=== PATIENT | male | born 1950 | race Caucasian/White ===

== ENCOUNTER 2016-11-05 11:21 | Inpatient (IN) ==
--- NOTE | 2016-11-04 22:47 | History and Physical Update ---
Sedation H&P Update - History and Physical H&P was reviewed, the patient examined and there: are no changes in the patients condition since last H&P was completed. - Dictation Physical: refer to H&P completed by admitting physician - Physical Exam Mental Status: alert and oriented Heart: regular rate and rhythm Lung: clear to auscultation Abdomen: within normal limits Vitals: within normal limits - Sedation Plan for Sedation: minimal Patient Consent: Procedure disscussed with patient and patinet has consented., Risks and benefits were discussed with patient,including infection,, bleeding, injury to surrounding structures, seizure, temporary nerve, Patient understands and accepts potential risks/benefits and agrees to, proceed. ASA Class: II Airway Assessment: Class II: Soft palate, uvula, fauces visible
--- NOTE | 2016-11-04 22:50 | Cardiology History & Physical ---
Assessment and Plan - Time spent with patient Time spent with patient: Greater than 30 minutes (1) Dyspnea on exertion Status: Acute Assessment and plan: The exercise EKG and symptoms that with exertion would suggest his symptoms are or anginal equivalent, due to CAD. Plan/recommendation: Admit to the Putty Worker. Left heart cath and possible PTCA or stent. Chest x-rays pending. Labs have been checked. They are acceptable. Left heart cath and possible PTCA or stent were discussed with the patient. The risk of the procedure include but are not limited to a small risk of injury to the vessel, abnormal heart rhythm, stroke, heart attack, need for emergent surgery, contrast reaction, restenosis, or . The patient voices understanding, agrees with the plan, and desires to proceed with the heart catheterization. (2) Abnormal ECG during exercise stress test Status: Acute (3) Inguinal hernia Status: Acute (4) Hypertension Status: Acute (5) Hypercholesterolemia Status: Acute History of Present Illness Chief complaint: " i am sob with exerttion" History of present illness: Mr. Wyman is a 66 year old male The patient is a 66-year-old man. He has had progressive dyspnea on exertion over the last 6 months. He underwent stress testing with Cardiolite. His stress test showed 1/2-2 mm flat to downsloping ST depression. He had dyspnea on exertion. He is being considered for hernia repair. Because of abnormal stress test he is referred for diagnostic catheterization and possible intervention. No orthopnea, PND, edema, palpitations, syncope, cough, wheezing, or phlegm. No bleeding in the pt's bowels, urine, or coughing up blood. No planned surgery for the next year. No contraindication to anticoagulation for a year. Home Medications Medication Instructions Recorded Confirmed Type Valsartan [Diovan] 160 mg PO DAILY 10/23/16 10/23/16 History Allergies Allergy/AdvReac Type Severity Reaction Status Date / Time Unable to Obtain Allergy Verified 10/26/16 13:10 12 point system: reviewed and no additional remarkable complaints except as stated (A 12 point review of systems is negative except for as mentioned in HPI) Medical,Surgical,& Family Hx - Medical History Cardio: History of: Hypertension (medication) Neurology: No history of: Seizures Respiratory: Comment Only: Respiratory Problems (had flu shot and up to date on pnumonia shot) Musculoskeletal: History of: Herniated Disk (back surgery) Hematology: History of: Blood Transfusion Reaction (4 years ago) - Surgical History HEENT Surgeries: Surgical HX of: Tonsilectomy & Adenoidectomy (12 years old) Abdominal Surgeries: Surgical HX of: Appendectomy (1970) Orthopedic Surgeries: Surgical HX of;: Total Knee Replacement (right knee surgery 1969) - Social History Smoking Status: Never smoker Type of Drug Use: None Functional capacity: independent ambulation Cardiology Physical Exam - Constitutional Exam: HEENT: Pupils equal, reactive to light and accommodation Neck: NoJVD or bruit Lungs clear to auscultation Heart: Regular rhythm rate with normal S1 and S2. Apical S4, 1/6 systolic ejection murmur along left lower sternal border Abdomen: No hepatosplenomegaly Spine/extremities: No clubbing, cyanosis, or edema Neuro: Nonfocal Psych: No depression or anxiety Right and left groins had 4+ pulses. Foot pulses were 3-4+. Result/EKG - Labs Lab Results: I have reviewed the past 24 hour labs Labs: CBC and chemistry from [facility] are unremarkable. Okay for the heart cath. A chest x-ray, PA and lateral is being done on admission. It is pending.
[~2016-11-05 11:21] MED LIST: ASPIRIN 325 MG TABLET PO ONE; DIAZEPAM 5 MG TABLET PO ONE; MAGNESIUM SULF RIDER 2 GM in PREMIX 1 EACH IV PRN; POTASSIUM CHLORIDE RIDER 10 MEQ in PREMIX 1 EACH IV PRN; diphenhydrAMINE CAP 25 MG CAPSULE PO ONE
--- NOTE | 2016-11-05 11:58 | XRay Report ---
XR chest 2V Indication: Chest pain. Chest 2 views: ACDF noted. The heart size and mediastinal contour are normal. The lungs and pleural spaces are clear. Bones are unremarkable. Impression: Negative chest. PROCEDURE INTERPRETED AT [facility] DEPARTMENT OF RADIOLOGY Final Report Signed by: Chidi Sykes M.D.
[2016-11-05] MEDS ORDERED: diphenhydrAMINE CAP 25 MG CAPSULE ONE (12:50)
[2016-11-05] MEDS ORDERED: DIAZEPAM 5 MG TABLET ONE (12:50)
[2016-11-05] MEDS: SODIUM CHLORIDE 0.9% 1,000 ML IV SCH ×3 (12:52→22:03)
[2016-11-05] MEDS ORDERED: LIDOCAINE 1% 20 ML VIAL ONE ×2 (13:13→17:44)
[2016-11-05] MEDS ORDERED: MEPERIDINE 25 MG/1 ML VIAL ONE ×3 (13:14→17:43)
[2016-11-05] MEDS ORDERED: MIDAZOLAM 2 MG/2 ML VIAL ONE ×2 (13:14→17:43)
--- NOTE | 2016-11-05 13:37 | EKG Report ---
Stationary ECG Study [facility] Test Date: 11/05/2016 11:59:37 AM Pat Name: SOHAM MCKEON Department: Room: C007 Gender: M Bill Collector: : 1950 Requested by: Jens Jacob Order Number: [id number] Reading MD: ABIGAIL SPIVEY Intervals [place] Rate: 75 P: 67 OK: 163 QRS: 72 QRSD: 101 T: 34 QT: 381 QTc: 409 Interpretive Statements SINUS RHYTHM Electronically Signed On 11-05-16 13:43:09 CDT by ABIGAIL SPIVEY [email or web address]
[2016-11-05] MEDS ORDERED: HEPARIN 5,000 UNIT/1 ML VIAL ONE ×2 (14:03→17:03)
[2016-11-05] MEDS ORDERED: NITROGLYCERIN DRIP 50 MG/250 ML BOTTLE IV ONE ×3 (14:11→18:12)
[2016-11-05] MEDS ORDERED: TICAGRELOR 90 MG TABLET ONE (14:27)
--- NOTE | 2016-11-05 15:44 | Operative Note ---
Date of procedure: 11/05/16 Procedure Preformed: Left heart cath Coronary angiography Left ventriculography Angiogram of the right femoral artery Intracoronary nitroglycerin Loading with Brilinta, 180 mg p.o. Stent of the proximal right coronary artery---drug-eluting stent, 3.0 x 15 mm Zions Alpine Angioplasty of the mid diagonal-successful--2.0 x 20 mm NC trek Angio-Seal of the right femoral artery-successful Surgeon / Physician: Jens Jacob Manager Camp: Lopez Harrell Post-op diagnosis: same (Progressive dyspnea on exertion, stress test suggestive of ischemia, hypertension) Findings: Impression: Significant disease in the proximal right coronary and in the mid diagonal-70% and 90%, respectively Mild disease in other vessels Normal global/regional left ventricular systolic function LVEF greater than 55% Normal to low LVEDP, 0--2 mmHg Intracoronary nitroglycerin of the right coronary--significant disease in the proximal right coronary artery, even after giving the intracoronary nitroglycerin Loading with Brilinta, 180 mg p.o. Status post successful stenting of the proximal right rtccxryj-eyiw-hxspjhk stent, 3.0 x 15 mm Zions Alpine Status post successful angioplasty of the mid diagonal-2.0 x 20 mm NC trek Angio-Seal of the right coronary-successful Plan/recommendations: The patient will have risk factors optimized. The patient will be on antiplatelet medications to include aspirin indefinitely and Plavix or Brilinta for at least a year. I will check his lipids. I will treat per guidelines. Even if his LDL is normal I will place him on a low-dose of a statin. We will delay his inguinal hernia surgery until he is at least 6 months out from his intervention, when can we could possibly interrupt the Brilinta treatment. Ideally will wait a year. Follow-up will be scheduled. Addenda: I saw the patient post-cath. the groin puncture site and distal pulse are stable. vital signs are stable and the patient will be observed closely overnight. Specimens: none sent Estimated blood loss: minimal Condition: stable Anesthesia: local, conscious sedation Disposition: floor
--- NOTE | 2016-11-05 15:51 | Cardiology Operative Report ---
Date of Procedure:: 11/05/16 Post-op diagnosis: same (Progressive dyspnea on exertion, stress test suggestive of ischemia, hypertension) Procedure: Date of procedure: 11/05/16 Procedure Preformed: Left heart cath Coronary angiography Left ventriculography Angiogram of the right femoral artery Intracoronary nitroglycerin--of rca Loading with Brilinta, 180 mg p.o. Stent of the proximal right coronary artery---drug-eluting stent, 3.0 x 15 mm Zions Alpine Angioplasty of the mid diagonal-successful--2.0 x 20 mm NC trek Angio-Seal of the right femoral artery-successful Surgeon / Physician: Jens Jacob Human Services Professional: Lopez Harrell Post-op diagnosis: same (Progressive dyspnea on exertion, stress test suggestive of ischemia, hypertension) procedure: The patient was prepped and draped in usual manner. Entered the right femoral artery via the Seldinger technique. I used a sheath and then used a JL4 and engaged left coronary. Multiple views were taken. I then exchanged for a JR4. Multiple views of the right coronary were taken. I then exchanged for an angled pigtail. I crossed the valve. Left ventricular end-diastolic pressures measured. Left ventriculography was done. Left ventricle pullback was done. The catheters were then removed from the patient. Please see the data sheets for the details of catheters used. Intracoronary nitroglycerin was given, 500 g. There is slightly less narrowing of the right coronary artery after was given. However, after the intervention of the diagonal, the narrowing had returned in the right coronary artery and was significant, at least 70%. Intervention: Cardiovascular surgery was available for any complications. Intervention of the diagonal: The coronary intervention was done using a JL4 guiding catheter, 0.014 run through wire, A 2.0 x 20 mm NC trek. I placed the wire and balloon across the diagonal. It was ballooned. See the data sheet. Afterwards there was a good result, less than 20% residual, continued TIFFANY grade III flow. Intervention of the right coronary: Intervention was done with a JR4 guiding cath, 0.01 run through wire, and direct stenting with a 3.0 x 15 mm Zions Alpine After no predilatation, i placed the Zions Alpine coronary stent across the lesion. It was deployed. Afterwards, there was a 0% residual and TIFFANY grade III flow. Angiogram of the right femoral artery was done, as a follow-through from the left ventriculogram. Angio-Seal was done. Patient was transferred to their room on telemetry in satisfactory condition. Please see the cath report for details of the pressures and times. Complications: none Hemodynamic data: LVEDP was 0 to -2 mmHg. Angiographic data: The left main coronary was large and had minimal luminal irregularities. The left anterior descending artery was large. There are 2 major diagonals. The parent LAD had minimal luminal irregularities. The first diagonal had minimal irregularities. The second diagonal had a mid 90% narrowing. It was relatively focal. The left circumflex system was moderate to large. It was 1 major obtuse marginal and 1 posterior lateral branches. there are minimal luminal irregularities in the circumflex The right coronary artery was large in size, dominant vessel with the PDA. There was a moderate sized post lateral branch. The proximal right coronary had a 70% narrowing. After intracoronary nitroglycerin, initially it appeared last. However, after intervention of the diagonal, when I re-looked, there is at least a 70% narrowing. It was significant. Otherwise there were minimal luminal irregularities of the right coronary artery. HOLMAN left ventriculography revealed normal global/regional left ventricular systolic function. Overall ejection fraction was at least 55%. There is no significant mitral regurgitation. After intervention of the of the diagonal, there is less than 20% residual. There is TIFFANY grade III flow. Also, the distal vessel was larger, significantly so. After intervention of the proximal right right coronary with a stent there is a 0% residual. There is TIFFANY grade III flow. Findings: Impression: Significant disease in the proximal right coronary and in the mid diagonal---70 % and 90%, respectively Mild disease in other vessels Normal global/regional left ventricular systolic function LVEF greater than 55% Normal to low LVEDP, 0--2 mmHg Intracoronary nitroglycerin of the right coronary--significant disease in the proximal right coronary artery, even after giving the intracoronary nitroglycerin Loading with Brilinta, 180 mg p.o. Status post successful stenting of the proximal right fqgsoqhs-fpqk-ljzxiry stent, 3.0 x 15 mm Geena Da Silva Status post successful angioplasty of the mid diagonal-2.0 x 20 mm GERRY linda Angio-Seal of the right coronary-successful Plan/recommendations: The patient will have risk factors optimized. The patient will be on antiplatelet medications to include aspirin indefinitely and Plavix or Brilinta for at least a year. I will check his lipids. I will treat per guidelines. Even if his LDL is normal I will place him on a low-dose of a statin. We will delay his inguinal hernia surgery until he is at least 6 months out from his intervention, when can we could possibly interrupt the Brilinta treatment. Ideally will wait a year. Follow-up will be scheduled. Addenda: I saw the patient post-cath. the groin puncture site and distal pulse are stable. vital signs are stable and the patient will be observed closely overnight. Specimens: none sent Estimated blood loss: minimal Condition: stable Anesthesia: local, conscious sedation Disposition: floor Additional CC's: Jens Khan Anesthesia: local, minimal conscious sedation Surgeon / Physician: Jens Jacob Human Services Professional: other Estimated blood loss: minimal Specimens: none sent Condition: stable Disposition: floor
[2016-11-05 17:05] LABS: Risk Ratio 2.58
[2016-11-05] MEDS ORDERED: TIROFIBAN 0 MCG in PREMIX 1 EACH IV ONE (17:10)
[2016-11-05] MEDS ORDERED: TIROFIBAN IV ONE (17:14)
[2016-11-05] MEDS ORDERED: SODIUM CHLORIDE 0.9% 250 ML IV ONE (17:20)
[2016-11-05] MEDS ORDERED: NITROGLYCERIN SL 0.4 MG TABLET SL ONE (17:24)
[2016-11-05] MEDS ORDERED: TIROFIBAN 5,000 MCG/100 ML PREMIX IV SCH (17:30)
[2016-11-05] MEDS: TIROFIBAN 5,000 MCG/100 ML PREMIX IV SCH (17:32)
[2016-11-05 17:38] LABS: Troponin I Only 0.029 NG/ML (0.00-0.045)
--- NOTE | 2016-11-05 19:38 | Operative Note ---
Date of procedure: 11/05/16 Procedure Preformed: Right coronary angiogram Stent of right coronary artery---3 drug-eluting stents, distal is a 2.5 x 38 mm Synergy, mid is a 2.5 x 38 mm Zions Alpine, the most proximal and telescoping into the proximal stent that was done a few hours ago is a 3.0 x 23 mm Zions Alpine--for long dissection of the right coronary after the original stent done a few hours ago Aggrastat bolus and infusion-starting CCU Suturing end of the left femoral arteries sheath Surgeon / Physician: Jens Jacob Knife Machine Operator: Radha De La Torre Post-op diagnosis: same (Placement of a right coronary stent and PTCA of the diagonal done a few years ago-the patient suddenly had chest pain, bradycardia and inferior ST elevation-brought back to the [place] [facility] for presumed problem in the right coronary artery) Findings: Impression: 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 There was 100% occluded in the midportion of the vessel-presumably it was guidewire trauma from the original intervention-was not seen at the time of the intervention Attempted ballooning and nitroglycerin of the right coronary with no benefit- presumed due to dissection Status post successful extensive stenting of the right coronary[full metal jacket] from the PDA back up to the distal portion of the original stent- covering all of the dissection--3 drug-eluting stents-3 drug-eluting stents, distal is a 2.5 x 38 mm Synergy, mid is a 2.5 x 38 mm Zions Alpine, the most proximal and telescoping into the proximal stent that was done a few hours ago is a 3.0 x 23 mm Zions Alpine--for 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 The patient will be on antiplatelet medications to include aspirin indefinitely and Plavix or Brilinta for at least a year. I will add a low-dose of carvedilol. Will be a beta-anna post MA. Eventually will use his ARB. I believe the acute occlusion of the right coronary was related to 2 dissections, just after the stent in the midportion of the right coronary. I have covered both dissections with 3 stents. He now is TIFFANY grade III flow, no ST elevation, no chest pain. Hopefully will last. There is some staining in the adventitia, particular in the midportion of the vessel, but no suggestion of perforation. His blood pressure is adequate and he is not having pericardial pain. He will be watched very closely. I will discuss with Dr. Iyer. I would favor not continuing anticoagulant in the patient overnight, but we can decide together. He will have his Aggrastat stopped when he is out. I do not believe this is a platelet dysfunction but related to a dissection. He has been given Brilinta. He will be continued on Brilinta. He probably has had at least a small-to- moderate MA with the event. Hopefully it will heal. If he closes off his vessel disease will be made as to whether to try to reopen it and sending to surgery or just let him have a heart attack. I would favor the latter because of the extensive covering of the stent and not much areas of the bypass could be sewn into[[it would be toward the mid to distal portion of the PDA]. Prognosis is guarded. Discussion was had with the patient and his regarding the situation. They voiced understanding and are aware. My post-cath check Addenda: I saw the patient post-cath. the groin puncture site and distal pulse are stable. vital signs are stable and the patient will be observed closely overnight. Specimens: none sent Estimated blood loss: minimal Condition: other (guarded) Anesthesia: local, conscious sedation Disposition: ICU
--- NOTE | 2016-11-05 19:54 | Cardiology Operative Report ---
Date of Procedure:: 11/05/16 Post-op diagnosis: same (Placement of a right coronary stent and PTCA of the diagonal done a few years ago-the patient suddenly had chest pain, bradycardia and inferior ST elevation-brought back to the Regular Senior Care Provider for presumed problem in the right coronary artery) Procedure: Date of procedure: 11/05/16 Procedure Preformed: Right coronary angiogram Stent of right coronary artery---3 drug-eluting stents, distal is a 2.5 x 38 mm Synergy, mid is a 2.5 x 38 mm Zions Alpine, the most proximal and telescoping into the proximal stent that was done a few hours ago is a 3.0 x 23 mm Zions Alpine--for 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 I did an an angiogram of the right coronary. I used a JR4 guide, 6 English. It revealed the stent to be widely patent, there is no clot, but just after the stent that was resection and it did appear to be fairly long within the midportion of the vessel was totally occluded, or it could have been a second dissection, possibly related to guidewire trauma with the original stent. There was some staining there, suggesting it might also be a dissection. I then used a run through wire to go through the old stent, a few hours old, down to the occlusion. With gentle manipulation he did cross what I presume was a dissection plane. I then placed it in the PDA. At the end placed a 2.0 20 mm apex across the mid to distal occlusion. It was ballooned. It helps somewhat but I could see there was an extension dissection. I then removed the balloon. Intravenous nitroglycerin had not helped. I then attempted to place a 2.5 x 38 mm Synergy across that long dissection distally into the PDA. I wanted to get in the PDA because the dissection appeared to be fairly long but did not initially appear in the PDA. It appears the PDA was not dissected so wanted to get to that point. I was willing to intermediate the post lateral as it did not supply much myocardium. I then placed a stent in the midportion but it would not go Into the PDA because of resistance. It backed up my guide. I then removed the stent. At this portion and during this time is across the wire the vessel was open, patient became better. I then used a guide liner to go through the original stent as far into the mid vessel was occluded. I placed it over the 2.0 balloon. After it was a far as I could go then I removed the balloon and then it re-attempt to place a stent distally. It did go. I was then able to place the Synergy into the PDA and back as far as can go. It was deployed. There was ongoing dissection even proximal up to the proximal stent. There is some staining of the adventitia but there is no suggestion of perforation. I then placed a 2.5 x 38 mm Zions Alpine telescoping into the distal stent as far up proximally as it could. It was deployed. It was fairly good. Then one could see the dissection between the original stent and the second long Alpine stent. I then placed a 3.0 x 23 mm Zions Alpine across this section. It was overlapping into the midportion of the original stent and into the second stent. It was deployed. At that point there is TIFFANY grade III flow, his pain was gone, his ST elevation was was gone. We watched it for 20 or 30 minutes. It is not changing. Over time, the jailing of the post lateral seem to be less. They might insert originally some spasm but it was gone. There is good flow. I removed the balloon and the wire. See please see the data sheet for the balloon inflation times and atmospheres. I then did my final diagnostic angiography. Again there is no suggestion of perforation. His blood pressure was adequate at 120/70. His ST elevation was gone. I felt he had had adequate antiplatelet therapy with the Aggrastat and the earlier Brilinta 180 so I did not give him extra. i Assess this was a dissection problem. I then removed the balloon and the wire did final angiograms. There was a good result. I do know that it is tenuous, however. It was elected to leave the left femoral artery sheath in place overnight. he remains stable without chest pain ST elevation for probably 40 total minutes as I was doing orders and my note. He was admitted to CCU and guarded condition. I had a long discussion with the patient and the as far as what would happen next if he did reocclude it --the decision to either allow the heart attack to happen and treat him through it with possible complications problems versus attempting to reopen it and send him to surgery with the risk of operation a single vessel disease with much anticoagulation on an antiplatelet medicines on board. I would favor the former option, trying to treat him to a heart attack. Complications: None-he came down with an occluded vessel Hemodynamic data: Systolic pressure was 100-120 during the entire procedure. I did not enter the left ventricle to get an LVEDP Angiographic data Prior to the intervention, the original angiogram was in the dissection just after the stent but also mid vessel occlusion which had the appearance of a dissection more than thrombus. After initially opening the vessel it appeared that the midportion was a dissection. After placement of the 3 new stents, telescoping, there was a 0% residual and TIFFANY grade III flow. There is also good flow to the posterior lateral branch of the right coronary. There was an adventitial staining of the midportion of the right coronary artery and I do not see any suggestion of perforation into the pericardium. 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 There was 100% occluded in the midportion of the vessel-presumably it was guidewire trauma from the original intervention-was not seen at the time of the intervention Attempted ballooning and nitroglycerin of the right coronary with no benefit- presumed due to dissection Status post successful extensive stenting of the right coronary[full metal jacket] from the PDA back up to the distal portion of the original stent- covering all of the dissection--3 drug-eluting stents-3 drug-eluting stents, distal is a 2.5 x 38 mm Synergy, mid is a 2.5 x 38 mm Zions Alpine, the most proximal and telescoping into the proximal stent that was done a few hours ago is a 3.0 x 23 mm Zions Alpine--for 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 The patient will be on antiplatelet medications to include aspirin indefinitely and Plavix or Brilinta for at least a year. I will add a low-dose of carvedilol. Will be a beta-anna post TX. Eventually will use his ARB. I believe the acute occlusion of the right coronary was related to 2 dissections, just after the stent in the midportion of the right coronary. I have covered both dissections with 3 stents. He now is TIFFANY grade III flow, no ST elevation, no chest pain. Hopefully will last. There is some staining in the adventitia, particular in the midportion of the vessel, but no suggestion of perforation. His blood pressure is adequate and he is not having pericardial pain. He will be watched very closely. I will discuss with Dr. Iyer. I would favor not continuing anticoagulant in the patient overnight, but we can decide together. He will have his Aggrastat stopped when he is out. I do not believe this is a platelet dysfunction but related to a dissection. He has been given Brilinta. He will be continued on Brilinta. He probably has had at least a small-to- moderate TX with the event. Hopefully it will heal. If he closes off his vessel disease will be made as to whether to try to reopen it and sending to surgery or just let him have a heart attack. I would favor the latter because of the extensive covering of the stent and not much areas of the bypass could be sewn into[[it would be toward the mid to distal portion of the PDA]. Prognosis is guarded. Discussion was had with the patient and his regarding the situation. They voiced understanding and are aware. My post-cath check Addenda: I saw the patient post-cath. the groin puncture site and distal pulse are stable. vital signs are stable and the patient will be observed closely overnight. Specimens: none sent Estimated blood loss: minimal Condition: other (guarded) Anesthesia: local, conscious sedation Disposition: ICU Additional CC's: Jens Khan Anesthesia: local, minimal conscious sedation Surgeon / Physician: Jens Touchstone Hand Spring Repairer: other Estimated blood loss: minimal Specimens: none sent Condition: other (guarded) Disposition: ICU/CCU
[2016-11-05] MEDS ORDERED: CARVEDILOL 3.125 MG TABLET PO SCH (20:00)
[2016-11-05] MEDS ORDERED: HEPARIN/NACL 0.9% 2 UNITS/ML 500 ML IV ONE (20:08)
[2016-11-05 21:18] LABS: Apearance,Urine CLEAR (Clear); Bilirubin,Urine Negative (Negative); Blood, Urine Large mg/dL (Negative); Glucose,Urine (UA) Negative (Negative); Ketones,Urine 20 mg/dL (Negative); Mucus,Urine Occasional /LPF (Occasional); Nitrite,Urine Negative (Negative); Protein,Urine Negative; RBC,Urine 181 /HPF (0-4); Squamous Epithelial Cell,Urine Occasional /HPF (0-10); Urine Color Straw (Yellow); Urine Specific Gravity > 1.060 (1.001-1.035); Urine Urobilinogen < 2.0 EU/DL (0.2-1.0); WBC,Urine 2 /HPF (0-6)
[2016-11-05] MEDS: TICAGRELOR 90 MG TABLET PO SCH (22:00)
[2016-11-05] MEDS ORDERED: ENOXAPARIN 40 MG/0.4 ML SYRINGE SUBCUT ONE (23:56)
[2016-11-06] MEDS: CARVEDILOL 6.25 MG TABLET PO SCH ×3 (00:03→13:29)
[2016-11-06 00:54] LABS: CKMB % 10.5 %
[2016-11-06 00:58] LABS: Troponin I Only 27.1 NG/ML (0.00-0.045)
[2016-11-06] MEDS: TIROFIBAN 5,000 MCG/100 ML PREMIX IV SCH ×4 (01:01→22:46)
[2016-11-06] MEDS: SODIUM CHLORIDE 0.9% 1,000 ML IV SCH (01:42)
[2016-11-06 05:14] LABS: Basophils % 0.2 % (0.0-0.8); Eosinophils % 0.1 % (0.00-10.9); Hematocrit 45.7 VOL% (42.0-52.0); Hemoglobin 15.6 GM/DL (14.0-18.0); Immature Granulocytes % 0.4 %; Immature Granulocytes Absolute 0.04 #; Lymphocytes # 1.2 10*3/uL (1.4-4.0); Lymphocytes % 11.6 % (21.2-54.2); Mean Corpuscular HGB Conc 34.1 GM/DL (32-36); Mean Corpuscular Hemoglobin 32 PG (27-34); Mean Platelet Volume 10.7 FL (9.6-12.0); Monocytes % 9.2 % (1.7-12.7); Neutrophils # 8.4 10*3/uL (1.4-7.4); Neutrophils % 78.5 % (38.7-73.9); Platelet Count 241 T/CUMM (130-400); Red Blood Count 4.86 MC/CUMM (3.8-5.5); Red Cell Distribution Width 13.6 % (9.3-17.3); White Blood Count 10.6 T/CUMM (4-12)
[2016-11-06 05:58] LABS: Calcium 8.3 MG/DL (8.5-10.1); Osmolality,Calculated 277.5 MOS/KG (273-304)
[2016-11-06] MEDS ORDERED: clonazePAM 0.5 MG TABLET PO PRN (07:27)
[2016-11-06 08:00] LABS: CKMB % 8.9 %
[2016-11-06] MEDS: TICAGRELOR 90 MG TABLET PO SCH ×2 (08:31→21:07)
[2016-11-06] MEDS: ALUMINUM/MAGNES/SIMETH MAX STR 30 ML UDCUP PO PRN ×2 (08:31→13:53)
[2016-11-06] MEDS: ROSUVASTATIN 10 MG TABLET PO SCH (08:31)
[2016-11-06] MEDS: PANTOPRAZOLE 40 MG TABLET PO SCH ×2 (08:32→21:07)
[2016-11-06] MEDS: ASPIRIN EC 81 MG TABLET PO SCH (08:32)
[2016-11-06] MEDS ORDERED: VALSARTAN 160 MG TABLET PO SCH (09:00)
--- NOTE | 2016-11-06 09:27 | EKG Report ---
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
--- NOTE | 2016-11-06 09:28 | EKG Report ---
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
--- NOTE | 2016-11-06 09:28 | EKG Report ---
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
--- NOTE | 2016-11-06 09:28 | EKG Report ---
Stationary ECG Study [facility] Test Date: 11/06/2016 7:15:05 AM Pat Name: SOHAM MCKEON Department: Room: 120 Gender: M Communication Engineer: JEANIE : 1950 Requested by: Jens Jacob Order Number: [id number] Jose Manuel MD: JEFRY BRYANT Intervals [place] Rate: 62 P: 62 VA: 149 QRS: 43 QRSD: 98 T: 40 QT: 416 QTc: 421 Interpretive Statements SINUS RHYTHM MODERATE ST DEPRESSION INTERPRETATION BASED ON A DEFAULT AGE OF 40 YEARS Electronically Signed On 11-07-16 11:22:22 CDT by JEFRY BRYANT [id number]
--- NOTE | 2016-11-06 15:54 | Cardiology Progress Note ---
Assessment and Plan (1) Dyspnea on exertion Status: Acute Assessment and plan: The exercise EKG and symptoms that with exertion would suggest his symptoms are or anginal equivalent, due to CAD. Plan/recommendation: Admit to the [place]. Left heart cath and possible PTCA or stent. Chest x-rays pending. Labs have been checked. They are acceptable. Left heart cath and possible PTCA or stent were discussed with the patient. The risk of the procedure include but are not limited to a small risk of injury to the vessel, abnormal heart rhythm, stroke, heart attack, need for emergent surgery, contrast reaction, restenosis, or . The patient voices understanding, agrees with the plan, and desires to proceed with the heart catheterization. 11/06/16: Assessment/plan/recommendation: Based on the study, he has had an RI was due to acute closure post stent. However, a full metal jacket stent of the right coronary seems to open the vessel well. His pain is gone. We will continue antiplatelet medications including Brilinta and aspirin. He is on a low-dose of beta-anna, carvedilol. Will change it to twice daily. We will change the carvedilol to 12.5 mg p.o. twice daily. He will be moved to telemetry later today. Up and about tomorrow and possibly home tomorrow or Wednesday, depending on his doing. I will see him back in 2 weeks. I emphasized to him the importance of taking the aspirin and Brilinta and beta-anna. He voiced understanding. He will be off the HCTZ. Current Visit: Yes (2) Abnormal ECG during exercise stress test Status: Acute Current Visit: Yes (3) Inguinal hernia Status: Acute Current Visit: Yes (4) Hypertension Status: Acute Current Visit: Yes (5) Hypercholesterolemia Status: Acute Current Visit: Yes Cardiology - PN: Subj Interval history: No chest pain or shortness of breath. Exam (Progress Note) - Constitutional Vitals: Period Temp Pulse Resp BP Sys/Moreno Pulse Ox Last 24 Hr 97.6 F-98.1 F 49-106 11-28 107-170/60-93 94-99 Exam: HEENT: Pupils equal, reactive to light and accommodation Neck: NoJVD or bruit Lungs clear to auscultation Heart: Regular rhythm rate with normal S1 and S2. Apical S4 Abdomen: No hepatosplenomegaly Spine/extremities: No clubbing, cyanosis, or edema Neuro: Nonfocal Psych: No depression or anxiety Right groin essentially normal. Left groin has some ecchymosis distal pulses are 1-2+ Result/EKG - Labs CBC & BMP: 11/06/16 04:14 11/06/16 04:14 Lab Results: I have reviewed the past 24 hour labs Labs: Laboratory Results - last 24 hr 11/05/16 11/05/16 11/05/16 16:22 16:22 16:50 WBC RBC Hgb Hct MCV MCH MCHC RDW Plt Count MPV Neut % (Auto) Lymph % (Auto) [place] % (Auto) Eos % (Auto) Baso % (Auto) Neut # (Auto) Lymph # (Auto) [place] # (Auto) Eos # (Auto) Baso # (Auto) Immature Gran % Nucleated RBC % Immature Gran # Nucleated RBCs # Sodium Potassium Chloride Carbon Dioxide Anion Gap BUN Creatinine GFR Calculation BUN/Creatinine Ratio Glucose POC Glucose 78 Calculated Osmolality Calcium Total Creatine Kinase 42 CK-MB (CK-2) < 1.0 CK and CKMB Interp Troponin I 0.029 Triglycerides 40 Cholesterol 142 LDL Cholesterol 86.0 VLDL Cholesterol 8.0 HDL Cholesterol 55 Heart Disease Risk Ratio 2.58 Urine Color Urine Appearance Urine pH Ur Specific [place] Urine Protein Urine Glucose (UA) Urine Ketones Urine Blood Urine Nitrate Urine Bilirubin Urine Urobilinogen Urine Leukocytes Urine RBC Urine WBC Ur Squamous Epith Cells Urine Mucus Ur Culture Indicated? 11/05/16 11/05/16 11/06/16 20:34 23:59 04:14 WBC 10.6 RBC 4.86 Hgb 15.6 Hct 45.7 MCV 94.0 MCH 32 MCHC 34.1 RDW 13.6 Plt Count 241 MPV 10.7 Neut % (Auto) 78.5 H Lymph % (Auto) 11.6 L [place] % (Auto) 9.2 Eos % (Auto) 0.1 Baso % (Auto) 0.2 Neut # (Auto) 8.4 H Lymph # (Auto) 1.2 L [place] # (Auto) 1.0 H Eos # (Auto) 0.0 Baso # (Auto) 0.0 Immature Gran % 0.4 Nucleated RBC % 0.0 Immature Gran # 0.04 Nucleated RBCs # 0.00 Sodium Potassium Chloride Carbon Dioxide Anion Gap BUN Creatinine GFR Calculation BUN/Creatinine Ratio Glucose POC Glucose Calculated Osmolality Calcium Total Creatine Kinase 505 H D CK-MB (CK-2) 52.8 H D CK and CKMB Interp 10.5 Troponin I 27.100 H D Triglycerides Cholesterol LDL Cholesterol VLDL Cholesterol HDL Cholesterol Heart Disease Risk Ratio Urine Color Straw Urine Appearance Clear Urine pH 6.0 Ur Specific [place] > 1.060 H Urine Protein Negative Urine Glucose (UA) Negative Urine Ketones 20 Urine Blood Large Urine Nitrate Negative Urine Bilirubin Negative Urine Urobilinogen < 2.0 H Urine Leukocytes Negative Urine RBC 181 Urine WBC 2 Ur Squamous Epith Cells Occasional Urine Mucus Occasional Ur Culture Indicated? Not indicated 11/06/16 11/06/16 04:14 07:18 WBC RBC Hgb Hct MCV MCH MCHC RDW Plt Count MPV Neut % (Auto) Lymph % (Auto) [place] % (Auto) Eos % (Auto) Baso % (Auto) Neut # (Auto) Lymph # (Auto) [place] # (Auto) Eos # (Auto) Baso # (Auto) Immature Gran % Nucleated RBC % Immature Gran # Nucleated RBCs # Sodium 139 Potassium 4.0 Chloride 105 Carbon Dioxide 22 Anion Gap 16.0 H BUN 19 H Creatinine 1.00 GFR Calculation 87 BUN/Creatinine Ratio 19.00 Glucose 89 POC Glucose Calculated Osmolality 277.5 Calcium 8.3 L Total Creatine Kinase 390 H D CK-MB (CK-2) 34.6 H D CK and CKMB Interp 8.9 Troponin I 19.000 H D Triglycerides Cholesterol LDL Cholesterol VLDL Cholesterol HDL Cholesterol Heart Disease Risk Ratio Urine Color Urine Appearance Urine pH Ur Specific [place] Urine Protein Urine Glucose (UA) Urine Ketones Urine Blood Urine Nitrate Urine Bilirubin Urine Urobilinogen Urine Leukocytes Urine RBC Urine WBC Ur Squamous Epith Cells Urine Mucus Ur Culture Indicated? - EKG EKG results: interpreted by me Quality Measures - VTE Contraindication to Pharmacological VTE Prophylaxis: High Risk of Bleeding Specialty Discharge - Follow Up or Referrals
[2016-11-06] MEDS: CARVEDILOL 12.5 MG TABLET PO SCH (21:07)
[2016-11-06] MEDS: SERTRALINE 25 MG TABLET PO SCH (21:09)
[2016-11-07] MEDS: TIROFIBAN 5,000 MCG/100 ML PREMIX IV SCH ×3 (05:25→19:02)
[2016-11-07 05:28] LABS: Basophils % 0.4 % (0.0-0.8); Eosinophils # 0.1 10*3/uL (0.0-0.87); Eosinophils % 0.9 % (0.00-10.9); Hemoglobin 15.5 GM/DL (14.0-18.0); Immature Granulocytes % 0.6 %; Immature Granulocytes Absolute 0.05 #; Lymphocytes # 1.8 10*3/uL (1.4-4.0); Lymphocytes % 21.2 % (21.2-54.2); Mean Corpuscular HGB Conc 33.7 GM/DL (32-36); Mean Corpuscular Hemoglobin 32 PG (27-34); Mean Corpuscular Volume 94.3 FL (87-102); Mean Platelet Volume 10.6 FL (9.6-12.0); Monocytes # 0.9 10*3/uL (0.11-0.8); Monocytes % 10.1 % (1.7-12.7); Neutrophils # 5.7 10*3/uL (1.4-7.4); Neutrophils % 66.8 % (38.7-73.9); Platelet Count 226 T/CUMM (130-400); Red Blood Count 4.88 MC/CUMM (3.8-5.5); Red Cell Distribution Width 13.5 % (9.3-17.3); White Blood Count 8.5 T/CUMM (4-12)
[2016-11-07 05:50] LABS: Calcium 8.7 MG/DL (8.5-10.1); Magnesium 2.2 MG/DL (1.8-2.4); Osmolality,Calculated 280.4 MOS/KG (273-304); Potassium 3.9 MMOL/L (3.5-5.1)
[2016-11-07 06:01] LABS: Alanine Aminotransferase 36 U/L (16-61); Albumin 3.5 G/DL (3.4-5.0); Alkaline Phosphatase 44 U/L (45-117); Aspartate Amino Transferase 48 U/L (0-37); Blood Urea Nitrogen 17 MG/DL (7-18); Calcium 8.7 MG/DL (8.5-10.1); Glucose 98 MG/DL (74-106); Osmolality,Calculated 280.4 MOS/KG (273-304); Sodium 140 MMOL/L (136-145); Total Protein 6.2 G/DL (6.4-8.3)
--- NOTE | 2016-11-07 08:04 | EKG Report ---
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
[2016-11-07] MEDS ORDERED: hydroCHLOROthiazide 12.5 MG CAPSULE PO SCH (09:00)
[2016-11-07] MEDS: ROSUVASTATIN 10 MG TABLET PO SCH (09:17)
[2016-11-07] MEDS: ASPIRIN EC 81 MG TABLET PO SCH (09:17)
[2016-11-07] MEDS: PANTOPRAZOLE 40 MG TABLET PO SCH ×2 (09:18→21:44)
[2016-11-07] MEDS: CARVEDILOL 12.5 MG TABLET PO SCH ×2 (09:18→21:44)
[2016-11-07] MEDS: TICAGRELOR 90 MG TABLET PO SCH ×2 (09:18→21:44)
--- NOTE | 2016-11-07 10:11 | Cardiology Progress Note ---
Cardiology - PN: Subj Interval history: Patient is stable and doing well. No chest pain. He has been walking in his room and went to increase his activity and have him walk out in the hallways and if he stable he will be discharged in the morning. Exam (Progress Note) - Constitutional Vitals: Period Temp Pulse Resp BP Sys/Moreno Pulse Ox Last 24 Hr 96.3 F-98.7 F 55-73 15-22 114-155/70-89 91-98 Exam: General:no acute distress. alert and oriented, mood and affect are normal HEENT: no new lesions, sclerae are clear, mouth and pharynx benign Neck: supple, trachea midline, no JVD noted Lungs: no rales ronchi or wheeze is noted. pt comfortable without accesory muscle use to assist with breathing CV: RRR no murmur rub or gallop is noted. Abd: soft and nontender, BSNA, no masses. Ext: no cyanosis, clubbing or edema. Cath sites are healing well without hematoma. Some ecchymosis on the left which appears to be stable. Neuro: grossly intact without focal neurologic deficit. Result/EKG - Labs CBC & BMP: 11/07/16 04:41 11/07/16 04:41 Labs: Laboratory Results - last 24 hr 11/07/16 11/07/16 11/07/16 04:41 04:41 04:41 WBC 8.5 RBC 4.88 Hgb 15.5 Hct 46.0 MCV 94.3 MCH 32 MCHC 33.7 RDW 13.5 Plt Count 226 MPV 10.6 Neut % (Auto) 66.8 Lymph % (Auto) 21.2 [place] % (Auto) 10.1 Eos % (Auto) 0.9 Baso % (Auto) 0.4 Neut # (Auto) 5.7 Lymph # (Auto) 1.8 [place] # (Auto) 0.9 H Eos # (Auto) 0.1 Baso # (Auto) 0.0 Immature Gran % 0.6 Nucleated RBC % 0.0 Immature Gran # 0.05 Nucleated RBCs # 0.00 Sodium 140 140 Potassium 3.9 4.0 Chloride 104 105 Carbon Dioxide 27 25 Anion Gap 12.9 14.0 BUN 17 17 Creatinine 1.20 1.20 GFR Calculation 70 70 BUN/Creatinine Ratio 14.00 14.00 Glucose 97 98 Calculated Osmolality 280.4 280.4 Calcium 8.7 8.7 Magnesium 2.2 Total Bilirubin 1.50 H AST 48 H ALT 36 Alkaline Phosphatase 44 L Total Creatine Kinase 167 D CK-MB (CK-2) 5.0 H D Troponin I 5.790 H D Total Protein 6.2 L Albumin 3.5 Globulin 2.7 Albumin/Globulin Ratio 1.2 Quality Measures - VTE Contraindication to Pharmacological VTE Prophylaxis: High Risk of Bleeding Specialty Discharge - Follow Up or Referrals
[2016-11-07] MEDS: SERTRALINE 25 MG TABLET PO SCH (21:44)
[2016-11-08] MEDS: TIROFIBAN 5,000 MCG/100 ML PREMIX IV SCH ×2 (02:53→10:40)
[2016-11-08 05:44] LABS: Basophils # 0.1 10*3/uL (0.0-0.2); Basophils % 0.5 % (0.0-0.8); Eosinophils # 0.2 10*3/uL (0.0-0.87); Hematocrit 44.7 VOL% (42.0-52.0); Hemoglobin 15.5 GM/DL (14.0-18.0); Immature Granulocytes % 1.1 %; Lymphocytes # 2.3 10*3/uL (1.4-4.0); Lymphocytes % 24.1 % (21.2-54.2); Mean Corpuscular HGB Conc 34.7 GM/DL (32-36); Mean Corpuscular Hemoglobin 32 PG (27-34); Mean Corpuscular Volume 93.5 FL (87-102); Monocytes # 0.9 10*3/uL (0.11-0.8); Monocytes % 9.6 % (1.7-12.7); Neutrophils # 5.9 10*3/uL (1.4-7.4); Neutrophils % 62.7 % (38.7-73.9); Platelet Count 222 T/CUMM (130-400); Red Blood Count 4.78 MC/CUMM (3.8-5.5); Red Cell Distribution Width 13.2 % (9.3-17.3); White Blood Count 9.5 T/CUMM (4-12)
[2016-11-08 06:14] LABS: Calcium 8.8 MG/DL (8.5-10.1); Magnesium 2.1 MG/DL (1.8-2.4); Osmolality,Calculated 281.4 MOS/KG (273-304); Potassium 3.8 MMOL/L (3.5-5.1)
[2016-11-08 08:13] VITALS: BP 129/78
--- NOTE | 2016-11-08 08:42 | Discharge Summary ---
Hospital Course - Hospital Course Hospital Course: This is a patient admitted with Dr. Jacob for elective coronary stenting of the right coronary stenosis. He underwent stenting complicated by distal dissection. The patient then underwent repeat stenting distally with good resolution of the occlusion distally and TIFFANY grade III flow at end procedure. He has been asymptomatic since his procedure. He complains of bilateral neck and shoulder pain which sounds like musculoskeletal pain worse with movement. I have asked that he hold his Crestor for several days and then review this with Dr. Jacob. He is ready for discharge at this time fully instructed related activities medications and precautions. He will see Dr. Jacob in 2 weeks. Specialty Discharge - Follow Up or Referrals Follow up with: Jens Jacob MD [Physician] - 2 Weeks Discharge Plan - Discharge Data Disposition: Disch To Home/Self Care Condition at Discharge: Stable Discharge Diet: heart healthy Activity: other (As reviewed no driving until Dr. Jacob sees him no working gradually increase physical activity as tolerated.) Hygiene: no restrictions - Discharge Medications New Tramadol HCl [Tramadol Tab] 50 mg PO Q4H PRN #30 tablet PRN Reason: Musculoskeletal pain Nitroglycerin [Nitroglycerin SL Tab] 0.4 mg SL Q5M PRN #100 tablet PRN Reason: Chest Pain Continue Valsartan [Diovan] 160 mg PO DAILY Carvedilol [Coreg] 12.5 mg PO BID #60 tablet Rosuvastatin [Crestor] 5 mg PO DAILY #30 tablet Sertraline [Zoloft] 25 mg PO BEDTIME #30 tablet Ticagrelor [Brilinta] 90 mg PO BID #60 tablet hydroCHLOROthiazide [Hydrochlorothiazide] 12.5 mg PO DAILY Aspirin [Ecotrin] 81 mg PO DAILY Pantoprazole Tab [Protonix Tab] 40 mg PO BID #30 tablet - Follow Up or Referral Follow Up: Jens Jacob MD [Physician] - 2 Weeks (ecg cbc bmp) - Forms/Instructions Instructions: Myocardial Infarction (GEN), Left Heart Catheterization (DC), Heart Healthy Diet (GEN), Coronary Intravascular Stent Placement, Special 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) Exam - Constitutional Vitals: Period Temp Pulse Resp BP Sys/Moreno Pulse Ox Last 24 Hr 97.7 F-98.7 F 59-68 14-20 106-129/63-78 97-99 Discharge Results Procedures and tests throughout hospitalization: Pending Orders 11/05/16 06:00 CL heart Routine 11/05/16 17:44 CL heart Stat 11/09/16 04:00 BMP w/ Mg [Basic Metabolic Panel w/Mg] IN AM Labs on day of discharge: Labs from last 24 hours 11/08/16 11/08/16 04:28 04:28 WBC 9.5 RBC 4.78 Hgb 15.5 Hct 44.7 MCV 93.5 MCH 32 MCHC 34.7 RDW 13.2 Plt Count 222 MPV 11.0 Neut % (Auto) 62.7 Lymph % (Auto) 24.1 [place] % (Auto) 9.6 Eos % (Auto) 2.0 Baso % (Auto) 0.5 Neut # (Auto) 5.9 Lymph # (Auto) 2.3 [place] # (Auto) 0.9 H Eos # (Auto) 0.2 Baso # (Auto) 0.1 Immature Gran % 1.1 Nucleated RBC % 0.0 Immature Gran # 0.10 Nucleated RBCs # 0.00 Sodium 140 Potassium 3.8 Chloride 104 Carbon Dioxide 26 Anion Gap 13.8 BUN 20 H Creatinine 1.20 GFR Calculation 70 BUN/Creatinine Ratio 16.00 Glucose 92 Calculated Osmolality 281.4 Calcium 8.8 Magnesium 2.1 DS: Provider Date of admission: 11/05/16 19:26 Primary care physician: Shelly Khan DO Attending physician on admission: Jens Jacob MD Consults: 11/05/16 15:33 Consult to Cardiac Rehabilitation [CONS] Routine Reason for Cardiac Rehabilitation: Risk Factor Modification Home Exercise Program/Ravindra Appt Out Pt Cardiac Rehab Discharging clinician: Quinton Iyer MD
[2016-11-08] MEDS: TICAGRELOR 90 MG TABLET PO SCH (10:01)
[2016-11-08] MEDS: CARVEDILOL 12.5 MG TABLET PO SCH (10:01)
[2016-11-08] MEDS: ROSUVASTATIN 10 MG TABLET PO SCH (10:01)
[2016-11-08] MEDS: ASPIRIN EC 81 MG TABLET PO SCH (10:01)
[2016-11-08] MEDS: PANTOPRAZOLE 40 MG TABLET PO SCH (10:01)
== END 2016-11-08 10:56 | disposition home or self-care (01) | DRG 246 ==
LOC: N.CL 11:21 → N.TELEN 11:35 → N.TELES 16:15 → N.CC 17:16 → N.TELES 11-06 20:03
PROVIDERS: ADMIT Internal Medicine Cardiovascular Disease; ATTEND Internal Medicine Cardiovascular Disease
PROC: CLCCHCL (ICD-10-PCS; 2016-11-05 13:45)